=== PATIENT | female | born 1975 | race Caucasian/White ===

== ENCOUNTER 2017-04-26 09:39 | Emergency (ER) | payer OTHER ==
[2017-04-26 09:53] VITALS: TEMP 98.3; BMI 25.5
--- NOTE | 2017-04-26 10:35 | PDOC ---
History of Present Illness - General Chief Complaint: Vaginal Bleeding Stated Complaint: VAGINAL BLEEDING Time Seen by Provider: 04/26/17 10:26 History Source: Patient Exam Limitations: No Limitations - History of Present Illness Travel History: No Initial Comments: 04/26/17 10:32 41 yr female LMP 01/29/17 conformed IUP last month with . presents with passing clot per vagina this am had cramping and suprapubic pain. Pt has vaginal bleeding now, light flow. Pt has no medical history non smoker denies ETOH or drug use. Past History - Past Medical History Allergies/Adverse Reactions: Allergies Allergy/AdvReac Type Severity Reaction Status Date / Time No Known Allergies Allergy Verified 04/26/17 09:50 COPD: No Other medical history: DENIES. - Suicide/Smoking/Psychosocial Hx Smoking History: Never smoked Abd/GI Specific PMHX - Complaint Specific PMHX Colitis: No Diverticulitis: No Gall Bladder Disease: No GERD: No Hepatitis: No Irritable Bowel Synd (IBS): No Pancreatitis: No GI Ulcer Disease: No Review of Systems - Review of Systems Able to Perform ROS?: Yes Is the patient limited Yi proficient: No Constitutional: No: Symptoms Reported HEENTM: No: Symptoms Reported Respiratory: No: Symptoms reported Cardiac (ROS): No: Irregular Heart Rate ABD/GI: Yes: Symptoms Reported, Other (vaginal bleeding ). No: Abdominal cramping : No: Symptoms Reported Musculoskeletal: No: Symptoms Reported Integumentary: No: Symptoms Reported *Physical Exam - Vital Signs Last Vital Signs Temp Pulse Resp BP Pulse Ox 98.3 F 94 H 19 121/75 100 04/26/17 09:50 04/26/17 09:50 04/26/17 09:50 04/26/17 09:50 04/26/17 09:50 - Physical Exam General Appearance: Yes: Nourished, Appropriately Dressed HEENT: positive: EOMI, LUIS, Normal ENT Inspection, Normal Voice, TMs Normal, Pharynx Normal Neck: positive: Supple. negative: Tender Respiratory/Chest: positive: Lungs Clear, Normal Breath Sounds Cardiovascular: positive: Regular Rhythm, Regular Rate Gastrointestinal/Abdominal: positive: Normal Bowel Sounds, Soft Musculoskeletal: positive: Normal Inspection Extremity: positive: Normal Capillary Refill, Normal Inspection, Normal Range of Motion Integumentary: positive: Normal Color, Dry, Warm Neurologic: positive: transit worker II-XII NML intact, Fully Oriented, Alert, Normal Mood/ Affect, Normal Response, Motor Strength 08/21 ED Treatment Course - LABORATORY CBC & Chemistry Diagram: 04/26/17 10:37 Medical Decision Making - Medical Decision Making 04/26/17 10:34 cc: early possible miscarriage will check labs and trans-vaginal US pt tearful, emotional support given 04/26/17 11:51 in ER spoke with pt will monitor the US. 04/26/17 17:40 discussed the US results with the pt and dc inst have been given by ALEXUS Lucero. pt is stable for discharge. *DC/Admit/Observation/Transfer Diagnosis at time of Disposition: Vaginal bleeding before 22 weeks gestation - Discharge Dispostion Disposition: HOME Condition at time of disposition: Fair - Referrals Referrals: Radha Rodriguez MD [Primary Care Provider] - Arnoldo Kirkpatrick MD [Staff Physician] - - Patient Instructions Additional Instructions: follow up with as discussed return to ER for any sever pain cramping or heavy bleeding - Post Discharge Activity
[2017-04-26 10:45] LABS: BASO % 0.4 % (0-2.0); EOS % 0.2 % (0-4.5); HEMOGLOBIN 13.2 GM/dL (10.7-15.3); LYMPH % 16.7 % (8-40); MCH 32.3 pg (25.7-33.7); MCHC 33.7 g/dl (32.0-36.0); MEAN CELL VOLUME 95.8 fl (80-96); MEAN PLT VOLUME 6.7 fl (7.5-11.1); MONO % 4.7 % (3.8-10.2); PLATELET COUNT 178 K/MM3 (134-434); RBC 4.07 M/mm3 (3.60-5.2); RDW 12.3 % (11.6-15.6); WHITE BLOOD COUNT 7.1 K/mm3 (4.0-10.0)
[2017-04-26 11:09] LABS: URINE APPEARANCE CLEAR; URINE BILIRUBIN NEGATIVE (NEGATIVE); URINE BLOOD 1+ (NEGATIVE); URINE COLOR COLORLESS; URINE GLUCOSE (UA) NEGATIVE (NEGATIVE); URINE KETONE NEGATIVE (NEGATIVE); URINE LEUK ESTERASE NEGATIVE (NEGATIVE); URINE NITRITE NEGATIVE (NEGATIVE); URINE PROTEIN NEGATIVE (NEGATIVE); URINE UROBILINOGEN NEGATIVE mg/dL (0.2-1.0)
--- NOTE | 2017-04-26 11:09 | PDOC ---
*Physical Exam - Vital Signs Last Vital Signs Temp Pulse Resp BP Pulse Ox 98.3 F 94 H 19 121/75 100 04/26/17 09:50 04/26/17 09:50 04/26/17 09:50 04/26/17 09:50 04/26/17 09:50 ED Treatment Course - LABORATORY CBC & Chemistry Diagram: 04/26/17 10:37 - ADDITIONAL ORDERS Additional order review: 04/26/17 10:37 RBC 4.07 MCV 95.8 MCHC 33.7 RDW 12.3 MPV 6.7 L Neutrophils % 78.0 Lymphocytes % 16.7 Monocytes % 4.7 Eosinophils % 0.2 Basophils % 0.4 - RADIOLOGY Radiology Studies Ordered: Category Date Time Status TRANSVAGINAL US PREG [US] Stat Ultrasound 04/26/17 10:23 Ordered Medical Decision Making - Medical Decision Making 04/26/17 11:08 Patient seen and evaluated with the nurse practitioner. I agree with the overall evaluation, assessment, and management with the following summary of visit: 41-year-old female at about 12 weeks gestation presents with vaginal bleeding. Agree with workup including hCG, Rh, ultrasound Dr. 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 *DC/Admit/Observation/Transfer Diagnosis at time of Disposition: Vaginal bleeding before 22 weeks gestation - Referrals Referrals: Radha Rodriguez MD [Primary Care Provider] - - Patient Instructions - Post Discharge Activity
[2017-04-26 12:42] VITALS: BP 128/88; PULSE 105
== END 2017-04-26 12:42 | disposition home or self-care (01) ==
LOC: JER 09:39
DX: O26.891 Other specified pregnancy related conditions, first trimester (principal); O46.91 Antepartum hemorrhage, unspecified, first trimester; Z3A.11 11 weeks gestation of pregnancy
CPT/HCPCS: 36415; 76817-TC; 81003; 81015; 84702; 85025; 86850; 86900; 86901; 99283-25

== ENCOUNTER 2018-04-06 05:29 | Day surgery (SDC) | payer OTHER ==
[2018-04-05 15:13] VITALS: BMI 24.2
[2018-04-06] MEDS ORDERED: ceFAZolin SODIUM 1 GM VIAL IVPB ONE (16:45)
--- NOTE | 2018-04-06 18:16 | HP ---
History & Physical Update - History History: No Change Currently as noted:: Missed Ab - Physical Physical: No Change - Assessment Assessment: No Change - Plan Plan: No Change Currently as noted:: Surgical Tx of missed Ab, D&C/Suction
[2018-04-06] MEDS ORDERED: LIDOCAINE HCL/PF 2% SDV 5ML VIAL ONE (18:30)
[2018-04-06] MEDS ORDERED: MIDAZOLAM HCL 2 MG/2 ML SINGLE DOSE VIAL ONE ×2 (18:30)
[2018-04-06] MEDS ORDERED: PROPOFOL 20 ML ONE ×2 (18:30)
--- NOTE | 2018-04-06 18:57 | OP ---
Operative Note - Note: Operative Date: 04/06/18 Pre-Operative Diagnosis: Missed Ab Operation: Suction/D&C, surgical Tx of missed Ab Findings: POC Post-Operative Diagnosis: Same as Pre-op Surgeon: Arnoldo Kirkpatrick Anesthesiologist/STONEWORK TRACER: Husam Chávez Anesthesia: General Specimens Removed: POC Estimated Blood Loss (mls): 30 Blood Volume Replaced (mls): 0 Fluid Volume Replaced (mls): 500 Operative Report Dictated: Yes
[2018-04-06] MEDS ORDERED: PROMETHAZINE HCL 25 MG/1 ML VIAL IVPUSH PRN (18:58)
[2018-04-06] MEDS ORDERED: ONDANSETRON 4 MG/2 ML VIAL IVPUSH PRN (18:58)
[2018-04-06] MEDS ORDERED: oxyCODONE HCL 5 MG TABLET PO PRN (18:58)
[2018-04-06] MEDS ORDERED: LACTATED RINGERS SOLUTION 1,000 ML IV SCH (19:00)
[2018-04-06 20:04] VITALS: BP 126/88; PULSE 61; TEMP 97.9
--- NOTE | 2018-04-07 08:53 | OP ---
DATE OF OPERATION: 04/06/2018 PREOPERATIVE DIAGNOSIS: Missed . POSTOPERATIVE DIAGNOSIS: Missed . PROCEDURE: Surgical treatment of missed , suction dilatation and curettage. SURGEON: Nilo Miranda MD ANESTHESIOLOGIST: Husam Chávez MD ANESTHESIA: General. COMPLICATIONS: None. PATHOLOGY: Products of conception. ESTIMATED BLOOD LOSS: 30 mL INTRAVENOUS FLUIDS: 500 mL FINDINGS: Examination under anesthesia revealed a small uterus consistent with approximately 9 weeks of gestation. No pelvic or adnexal masses were noted. The cervical os was closed. No vaginal bleeding. Products of conception were noted at suction curettage. No retained products of conception were noted at the end of the procedure. DESCRIPTION OF PROCEDURE: The patient was met preoperatively. Risks, benefits, and alternatives of surgery were discussed in detail. All questions were answered. The patient was brought to the OR with the IV running. She was placed on the surgical table in the supine position. The general anesthesia was achieved without difficulty. The patient was then placed in a dorsal lithotomy position using adjustable Vincent stirrups. She was examined under anesthesia with the findings as described above. The patient was then prepped and draped in the usual sterile fashion. A timeout procedure was conducted as per standard protocol. The surgeon then proceeded with the operation. A sterile speculum was introduced inside the vagina with good visualization of the cervix. The anterior cervical lip was grasped with a single-tooth tenaculum. The cervical os was dilated to accommodate a size 27 [place] dilator. An 8-mm curette was then used to remove the products of conception with the suction curettage. Once this was completed, an empty uterine cavity was noted. Good hemostasis was confirmed. All of the instruments were removed from the patient. Once again, good hemostasis was confirmed. Sponge, lap, and instrument counts were done and noted to be correct. The patient was then returned to supine position. She was transferred to recovery room in stable condition and awake. NILO MIRANDA M.D. [id number]
--- NOTE | 2018-04-14 18:21 | PATH ---
Surgical Pathology Report Patient Name: JOSE SANCHEZ Med. Rec. #: [id number] /Age/Gender: 1975 (Age: 42) / F Account: [id number] Location: [facility] SURGICAL Taken: 04/06/2018 Received: 04/08/2018 Reported: 04/14/2018 Physicians: Arnoldo Kirkpatrick M.D. Specimen(s) Received PRODUCTS OF CONCEPTION Clinical History Missed Final Diagnosis UTERINE CONTENTS/POC, DILATION AND CURETTAGE: IMMATURE CHORIONIC VILLI WITH FOCAL HYDROPIC CHANGE CONSISTENT WITH PRODUCTS OF CONCEPTION. CHROMOSOMAL STUDIES ARE PENDING AND WILL BE REPORTED SEPARATELY AN ADDENDUM. Electronically Signed Isabell Osborn M.D. Gross Description Received fresh labeled "uterine contents," is a 6.5 x 6.0 x 0.8 cm aggregate of reyes-red soft tissue fragments. Villous tissue is identified. No somatic tissue is identified. A manufacturing sales representative portion is submitted in RPMI solution and sent for chromosomal analysis. An additional manufacturing sales representative portion is submitted in one cassette. 04/08/2018 saudi04/08/2018
== END 2018-04-06 20:00 | disposition home or self-care (01) ==
LOC: JASU-SURG 05:29
PROVIDERS: ATTEND Obstetrics & Gynecology
PROC: 10D17ZZ Extraction of Products of Conception, Retained, Via Natural or Artificial Opening (ICD-10-PCS; principal; 2018-04-06 17:30)
DX: O02.1 Missed abortion (principal)
CPT/HCPCS: 88305-TC; 94760